=== PATIENT | female | born 1955 | race Hispanic/Latino ===

== ENCOUNTER 2020-08-18 23:22 | Emergency (ER) | payer SELFPAY ==
[2020-08-19] MEDS ORDERED: ALBUTEROL INHALER 60 PUFF/8 GM IH ONE (00:38)
[2020-08-19 01:25] LABS: Protime INR 0.98
[2020-08-19 01:27] LABS: Absolute Lymphocytes (CBC) 0.4 K/uL (0.7-4.9); Basophils % 0.3 % (0-1.3); Hematocrit 38.2 % (36.0-45.0); Lymphocytes % 7.2 % (15.3-44.8); MPV 7.7 fL (7.6-11.3); RBC Red Blood Cell Count 4.34 M/uL (3.86-4.86)
[2020-08-19 01:40] LABS: ALT/SGPT 23 U/L (12-78); AST/SGOT 18 U/L (15-37); Albumin 3.5 g/dL (3.4-5.0); Alkaline Phosphatase 89 U/L (45-117); BUN Blood Urea Nitrogen 13 mg/dL (7-18); Bicarbonate 25 mmol/L (21-32); Bilirubin Direct < 0.1 mg/dL (0-0.2); Bilirubin Total 0.3 mg/dL (0.2-1.0); Glucose Level 160 mg/dL (74-106); Magnesium 2.2 mg/dL (1.8-2.4); NT PRO-BNP 44 pg/mL (<125); Potassium 4.2 mmol/L (3.5-5.1); Protein, Total 8.1 g/dL (6.4-8.2); Sodium Level 138 mmol/L (136-145); Troponin (Emerg Dept Use Only) < 0.02 ng/mL (0.0-0.045)
[2020-08-19 02:34] LABS: Blood Morphology Comment NOT SEEN (NOT SEEN); Platelet Estimate ADEQ
--- NOTE | 2020-08-19 04:13 | EDPHYS ---
Physician Documentation [facility] Name: Liza Merchant Age: 64 yrs Sex: Female : 1955 Arrival Date: 08/18/2020 Time: 23:27 Bed 6 Private MD: ED Physician Theron Abarca HPI: 08/19 00:50 This 64 yrs old Female presents to ER via Ambulatory with complaints of mh7 Breathing Difficulty, High Blood Pressure. 00:50 The patient has shortness of breath at rest. Onset: The symptoms/episode began/occurred mh7 6 day(s) ago. Duration: The symptoms are continuous, and are unchanged since they started. The patient's shortness of breath is aggravated by coughing, light activity, is alleviated by nothing. 00:51 Associated signs and symptoms: Pertinent negatives: chest pain, productive cough, mh7 diaphoresis, dizziness, fever, hemoptysis, loss of consciousness, nausea, numbness in extremities, visual changes, vomiting. 00:57 Severity of symptoms: At their worst the symptoms were moderate yesterday, in the [facility] emergency department the symptoms are unchanged. Historical: - Allergies: 08/18 23:47 No Known Allergies; dm5 - Immunization history:: Adult Immunizations up to date. - Social history:: Smoking status: Patient denies any tobacco usage or history of. ROS: 08/19 00:57 Constitutional: Negative for fever, chills, and weight loss, Eyes: Negative for injury, mh7 pain, redness, and discharge, ENT: Negative for injury, pain, and discharge, Neck: Negative for injury, pain, and swelling, Cardiovascular: Negative for chest pain, palpitations, and edema, Abdomen/GI: Negative for abdominal pain, nausea, vomiting, diarrhea, and constipation, Back: Negative for injury and pain, : Negative for injury, bleeding, discharge, and swelling, MS/Extremity: Negative for injury and deformity, Skin: Negative for injury, rash, and discoloration, Neuro: Negative for headache, weakness, numbness, tingling, and seizure, Psych: Negative for depression, anxiety, suicide ideation, homicidal ideation, and hallucinations, Allergy/Immunology: Negative for hives, rash, and allergies, Endocrine: Negative for neck swelling, polydipsia, polyuria, polyphagia, and marked weight changes, Hematologic/Lymphatic: Negative for swollen nodes, abnormal bleeding, and unusual bruising. Exam: 00:57 Constitutional: This is a well developed, well nourished patient who is awake, alert, mh7 and in no acute distress. Head/Face: Normocephalic, atraumatic. Eyes: Pupils equal round and reactive to light, extra-ocular motions intact. Lids and lashes normal. Conjunctiva and sclera are non-icteric and not injected. Cornea within normal limits. Periorbital areas with no swelling, redness, or edema. Neck: Trachea midline, no thyromegaly or masses palpated, and no cervical lymphadenopathy. Supple, full range of motion without nuchal rigidity, or vertebral point tenderness. No Meningismus. Chest/axilla: Normal chest wall appearance and motion. Nontender with no deformity. No lesions are appreciated. Cardiovascular: Regular rate and rhythm with a normal S1 and S2. No gallops, murmurs, or rubs. Normal PMI, no JVD. No pulse deficits. 00:57 Abdomen/GI: Soft, non-tender, with normal bowel sounds. No distension or tympany. No guarding or rebound. No evidence of tenderness throughout. Back: No spinal tenderness. No costovertebral tenderness. Full range of motion. Skin: Warm, dry with normal turgor. Normal color with no rashes, no lesions, and no evidence of cellulitis. MS/ Extremity: Pulses equal, no cyanosis. Neurovascular intact. Full, normal range of motion. Neuro: Awake and alert, GCS 15, oriented to person, place, time, and situation. Cranial nerves II-XII grossly intact. Motor strength 5/5 in all extremities. Sensory grossly intact. Cerebellar exam normal. Normal gait. Psych: Awake, alert, with orientation to person, place and time. Behavior, mood, and affect are within normal limits. 00:57 Respiratory: the patient does not display signs of respiratory distress, Respirations: normal, Breath sounds: rhonchi, that are mild, are scattered, Respiratory rate: 20 Vital Signs: 08/18 23:45 BP 158 / 73; Pulse 78; Resp 20; Temp 97.8; Pulse Ox 97% on R/A; Weight 71.67 kg (R); dm5 Height 5 ft. 3 in. (160.02 cm); Pain 0/10; 11/23 00:15 BP 173 / 75; Pulse 80; Resp 18; Pulse Ox 97% on R/A; lp1 01:15 BP 143 / 63; Pulse 76; Resp 21; Pulse Ox 95% on R/A; lp1 02:00 BP 132 / 62; Pulse 69; Resp 21; Pulse Ox 95% on R/A; lp1 03:09 BP 148 / 70; Pulse 64; Resp 22; Pulse Ox 96% on R/A; lp1 04:00 BP 148 / 69; Pulse 63; Resp 23; Pulse Ox 95% on R/A; lp1 08/18 23:45 Body Mass Index 27.99 (71.67 kg, 160.02 cm) dm5 MDM: 04:10 Differential diagnosis: Anemia Anxiety Reaction asthma, Bronchitis CHF exacerbation, mh7 Chronic Obstructive Pulmonary Disease Myocardial Infarction pneumonia, Pneumothorax Psychogenic pulmonary edema, Pulmonary Embolism reactive airway disease. Data reviewed: vital signs, nurses notes, lab test result(s), cardiac enzymes, CBC, electrolytes, urinalysis, EKG, radiologic studies, CT scan, plain films. Data interpreted: Pulse oximetry: on room air is 96 %. Interpretation: normal. Counseling: I had a detailed discussion with the patient and/or guardian regarding: the historical points, exam findings, and any diagnostic results supporting the discharge/admit diagnosis, the presence of at least one elevated blood pressure reading (>120/80) during this emergency department visit, lab results, radiology results, the need for outpatient follow up, to return to the emergency department if symptoms worsen or persist or if there are any questions or concerns that arise at home. Response to treatment: the patient's symptoms have markedly improved after treatment. 04:12 Patient medically screened. [facility] 08/19 00:21 Order name: Basic Metabolic Panel; Complete Time: 02:08 [facility] 08/19 00:21 Order name: CBC with Diff; Complete Time: 03:49 [facility] 08/19 00:21 Order name: LFT's; Complete Time: 02:08 [facility] 08/19 00:21 Order name: Magnesium; Complete Time: 02:08 [facility] 08/19 00:21 Order name: NT PRO-BNP; Complete Time: 02:08 [facility] 08/19 00:21 Order name: PT-INR; Complete Time: 01:38 [facility] 08/19 00:21 Order name: Troponin (emerg Dept Use Only); Complete Time: 02:08 [facility] 08/19 00:21 Order name: XRAY Chest (1 view) [facility] 08/19 00:21 Order name: EKG; Complete Time: 00:22 [facility] 08/19 00:21 Order name: Cardiac monitoring; Complete Time: 00:58 [facility] 08/19 00:21 Order name: EKG - Nurse/Tech; Complete Time: 00:58 [facility] 08/19 01:37 Order name: Manual Differential; Complete Time: 03:49 EDMS 08/19 02:16 Order name: CT Chest For PE Angio [facility] 08/19 00:21 Order name: IV Saline Lock; Complete Time: 00:58 [facility] 08/19 00:21 Order name: Labs collected and sent; Complete Time: 00:58 [facility] 08/19 00:21 Order name: O2 Per Protocol; Complete Time: 00:58 [facility] 08/19 00:21 Order name: O2 Sat Monitoring; Complete Time: 00:58 [facility] Administered Medications: 00:58 Drug: Albuterol HFA Inhaler 2 puffs Route: Inhalation; lp1 Disposition: 08/19/20 04:12 Discharged to Home. Impression: COVID Pneumonia. - Condition is Stable. - Discharge Instructions: COVID-19. - Prescriptions for Tessalon Perles 100 mg Oral Capsule - take 1 capsule by ORAL route every 8 hours As needed; 15 capsule. Zithromax Z- Mk 250 mg Oral Tablet - take 1 tablet by ORAL route as directed for 5 days Day 1 - take two (2) tablets one time. Day 2, 3, 4 , 5 take one (1) tablet once daily.; 6 tablet. Albuterol Sulfate 90 mcg/actuation - inhale 1-2 puff by INHALATION route every 4-6 hours; 1 Inhaler. - Medication Reconciliation Form, Thank You Letter, Antibiotic Education, Prescription Opioid Use form. - Follow up: Private Physician; When: 1 - 2 days; Reason: Worsening of condition, Recheck today's complaints, Continuance of care, Re-evaluation by your physician. Follow up: Helio Maravilla MD; When: 1 - 2 days; Reason: Worsening of condition, Recheck today's complaints. - Problem is an ongoing problem. - Symptoms have improved. Signatures: Dispatcher [employer] EDMS Vaishnavi Leonard, RN RN dm5 Vicky Anand RN RN lp1 Theron Abarca MD MD mh7 Corrections: (The following items were deleted from the chart) 04:26 04:12 08/19/2020 04:12 Discharged to Home. Impression: COVID Pneumonia. Condition is lp1 Stable. Forms are Medication Reconciliation Form, Thank You Letter, Antibiotic Education, Prescription Opioid Use. Follow up: Private Physician; When: 1 - 2 days; Reason: Worsening of condition, Recheck today's complaints, Continuance of care, Re-evaluation by your physician. Follow up: Helio Maravilla; When: 1 - 2 days; Reason: Worsening of condition, Recheck today's complaints. Problem is an ongoing problem. Symptoms have improved. mh7
--- NOTE | 2020-08-19 04:13 | ER ---
Nurse's Notes [facility] Name: Liza Merchant Age: 64 yrs Sex: Female : 1955 Arrival Date: 08/18/2020 Time: 23:27 Bed 6 Private MD: Diagnosis: COVID Pneumonia Presentation: 08/18 23:45 Chief complaint: Patient states: I am worried about bronchitis, when I breathe deep i dm5 cough. tested positive for COVID on 08/12. Coronavirus screen: Client reports previous positive COVID test result. Date of collection: August 12, 2020 copy of results with her. Ebola Screen: Patient negative for fever greater than or equal to 101.5 degrees Fahrenheit, and additional compatible Ebola Virus Disease symptoms Patient denies exposure to infectious person. Patient denies travel to an Ebola-affected area in the 21 days before illness onset. No symptoms or risks identified at this time. Initial Sepsis Screen: Does the patient meet any 2 criteria? No. Patient's initial sepsis screen is negative. Does the patient have a suspected source of infection? Yes: Productive cough/pneumonia. Risk Assessment: Do you want to hurt yourself or someone else? Patient reports no desire to harm self or others. Onset of symptoms was August 18, 2020. 23:45 Method Of Arrival: Ambulatory dm5 23:45 Acuity: HIRO 3 dm5 Historical: - Allergies: 23:47 No Known Allergies; dm5 - Immunization history:: Adult Immunizations up to date. - Social history:: Smoking status: Patient denies any tobacco usage or history of. Screenin/23 00:59 Abuse screen: Denies threats or abuse. Denies injuries from another. Nutritional lp1 screening: No deficits noted. Tuberculosis screening: No symptoms or risk factors identified. Fall Risk None identified. Assessment: 00:30 General: Appears in no apparent distress. Behavior is calm, cooperative, appropriate lp1 for age. Pain: Complains of pain in chest Aggravated by coughing. Neuro: Level of Consciousness is awake, alert, obeys commands, Oriented to person, place, time, situation. Cardiovascular: Patient's skin is warm and dry. Rhythm is sinus rhythm. Respiratory: Reports shortness of breath on exertion pain with cough Airway is patent Trachea midline Respiratory effort is even, Respiratory pattern is regular, symmetrical, Breath sounds are clear bilaterally. Onset: The symptoms/episode began/occurred gradually, the patient has mild shortness of breath. GI: Abdomen is non-distended. : No signs and/or symptoms were reported regarding the genitourinary system. EENT: No signs and/or symptoms were reported regarding the EENT system. Derm: Skin is pink, warm \T\ dry. Musculoskeletal: No deficits noted. 02:00 Reassessment: Patient appears in no apparent distress at this time. Patient resting, lp1 eyes closed, respirations even. 03:09 Reassessment: Patient is alert, oriented x 3, equal unlabored respirations, skin lp1 warm/dry/pink. Patient returned from CT; Denies any needs at this time. 04:12 Reassessment: Patient assessed while ambulating independently; O2 on RA at 94% HR 90; lp1 Patient denies shortness of breath after walking around empty hallway. 04:15 Reassessment: Dr. Abarca at bedside to discuss discharge with patient, demonstrates lp1 comfort with discharge plans and continue quarantine. Vital Signs: 08/18 23:45 BP 158 / 73; Pulse 78; Resp 20; Temp 97.8; Pulse Ox 97% on R/A; Weight 71.67 kg (R); dm5 Height 5 ft. 3 in. (160.02 cm); Pain 0/10; 08/19 00:15 BP 173 / 75; Pulse 80; Resp 18; Pulse Ox 97% on R/A; lp1 01:15 BP 143 / 63; Pulse 76; Resp 21; Pulse Ox 95% on R/A; lp1 02:00 BP 132 / 62; Pulse 69; Resp 21; Pulse Ox 95% on R/A; lp1 03:09 BP 148 / 70; Pulse 64; Resp 22; Pulse Ox 96% on R/A; lp1 04:00 BP 148 / 69; Pulse 63; Resp 23; Pulse Ox 95% on R/A; lp1 08/18 23:45 Body Mass Index 27.99 (71.67 kg, 160.02 cm) dm5 ED Course: 08/18 23:27 Patient arrived in ED. cf2 23:47 Triage completed. dm5 23:57 Theron Abarca MD is Attending Physician. 7 08/19 00:08 Vicky Anand, RN is Primary Nurse. lp1 00:45 Inserted saline lock: 20 gauge in right forearm, using aseptic technique. Blood lp1 collected. 00:45 Patient has correct armband on for positive identification. Placed in gown. Bed in low lp1 position. Call light in reach. c d still operator on. Pulse ox on. NIBP on. 00:59 Arm band placed on. lp1 01:05 XRAY Chest (1 view) In Process Unspecified. EDMS 03:10 CT Chest For PE Angio In Process Unspecified. EDMS 04:11 Helio Maravilla MD is Referral Physician. [facility] 04:16 No provider procedures requiring assistance completed. IV discontinued, No lp1 redness/swelling at site. Pressure dressing applied. Administered Medications: 00:58 Drug: Albuterol HFA Inhaler 2 puffs Route: Inhalation; lp1 Outcome: 04:12 Discharge ordered by MD. 7 04:16 Discharged to home ambulatory, with family. lp1 04:16 Condition: good 04:16 Discharge instructions given to patient, family, Instructed on discharge instructions, follow up and referral plans. medication usage, Demonstrated understanding of instructions, follow-up care, medications, Prescriptions given X 3. 04:26 Patient left the ED. lp1 Signatures: Dispatcher [employer] EDME Vaishnavi Leonard RN RN dm5 Vicky Anand RN RN lp1 Allie Montiel cf2 Theron Abarca MD MD 7 Corrections: (The following items were deleted from the chart) 02:13 02:10 BP 143 / 63; Pulse 76bpm; Resp 21bpm; Pulse Ox 95% RA; lp1 lp1 02:17 00:30 Respiratory: Reports pain with cough Airway is patent Trachea midline Respiratory lp1 effort is even, Respiratory pattern is regular, symmetrical, Breath sounds are clear bilaterally. lp1 02:17 00:30 Respiratory: Reports shortness of breath on exertion pain with cough Airway is lp1 patent Trachea midline Respiratory effort is even, Respiratory pattern is regular, symmetrical, Breath sounds are clear bilaterally. the patient has mild shortness of breath lp1
--- NOTE | 2020-08-19 08:57 | RAD REPORT ---
EXAM DESCRIPTION: RAD - Chest Single View - 08/19/2020 1:05 am CLINICAL HISTORY: Cough;SOB Chest pain. COMPARISON: CHEST PA AND LAT 2 VIEW dated 07/07/2008 FINDINGS: Portable technique limits examination quality. The lungs are grossly clear. The heart is normal in size. No displaced fractures. IMPRESSION: No acute intrathoracic process suspected.
[2020-08-19 10:21] VITALS: TEMP 97.8
[2020-08-19 10:35] VITALS: BP 148/69; O2SAT 95
--- NOTE | 2020-08-19 12:01 | RAD REPORT ---
EXAM DESCRIPTION: CT Angiography Chest With Intravenous Contrast CLINICAL HISTORY: The patient is 64 years old and is Female; SOB TECHNIQUE: Axial computed tomographic angiography images of the chest with intravenous contrast. S agittal and coronal reformatted images were created and reviewed. This CT exam was performed using one or more of the following dose reduction techniques: automated exposure control, adjustment of t he mA and/or kV according to patient size, and/or use of iterative reconstruction technique. MIP reconstructed images were created and reviewed. COMPARISON: No relevant prior studies available. FINDINGS: ARTIFACTS: The exam is suboptimal secondary to motion artifact. PULMONARY ARTERIES: There are no obvious filling defects identified within the pulmonary arterie s to suggest pulmonary embolism. AORTA: No acute findings. No thoracic aortic aneurysm. LUNGS: Scattered nonspecific groundglass opacity throughout the lungs are present. Mild interlob ular thickening is noted. PLEURAL SPACE: Unremarkable. No significant effusion. No pneumothorax. HEART: Unremarkable. No cardiomegaly. No significant pericardial effusion. No evidence of RV dysfunction. MEDIASTINUM: The tracheobronchial tree is widely patent. BONES/JOINTS: Mild multilevel degenerative change of the spine with anterior osteophyte formatio n and intervertebral disc space narrowing is present. No acute fracture. No dislocation. SOFT TISSUES: Unremarkable. LYMPH NODES: Unremarkable. No enlarged lymph nodes. IMPRESSION: 1. No evidence of pulmonary embolism. 2. Imaging features can be seen with (COVID-19 or viral) pneumonia , though are nonspecific and can occur with a variety of infectious and noninfectious processes. [id number] Electronically signed by: Roselia Marx MD 08/19/2020 3:20 AM KILN BURNER Due to temporary technical issues with the PACS/Fluency reporting system, reports are being signed by the in house radiologist without review as a courtesy to ensure prompt reporting. The interpreting r adiologist is fully responsible for the content of the report.
== END 2020-08-19 04:26 | disposition home or self-care (01) ==
LOC: ER 23:22
DX: U07.1 COVID-19 (principal); J12.89 Other viral pneumonia
CPT/HCPCS: 36415; 71045; 71275; 80048; 80076; 83735; 83880; 84484; 85025; 85610; 93005; 99285; Q9967

== ENCOUNTER 2022-06-06 09:31 | Emergency (ER) | payer SELFPAY ==
[2022-06-06] MEDS ORDERED: MORPHINE 2 MG/ML SYR ONE ×2 (09:58→11:23)
[2022-06-06] MEDS ORDERED: KETOROLAC 30 MG/ML INJ ONE (09:58)
[2022-06-06] MEDS ORDERED: NA CHLORIDE 0.9% 1,000 ML ONE (09:59)
[2022-06-06] MEDS ORDERED: ONDANSETRON 4 MG/2 ML VIAL ONE (09:59)
[2022-06-06 10:04] LABS: Urine Blood Negative (Negative); Urine Glucose Negative (Negative); Urine Protein Negative (Negative); Urine Specific Gravity >=1.030 (1.005-1.030); Urine pH 5.5 (5.0-7.0)
[2022-06-06 10:10] LABS: Absolute Lymphocytes (CBC) 2.1 K/uL (0.7-4.9); Hematocrit 38.2 % (36.0-45.0); Lymphocytes % 34.2 % (15.3-44.8); MCV 87.7 fL (80-100); MPV 7.1 fL (7.6-11.3); RBC Red Blood Cell Count 4.36 M/uL (3.86-4.86)
--- NOTE | 2022-06-06 10:25 | RAD REPORT ---
EXAM DESCRIPTION: CTAbdomen Pelvis Wo Contrast - 06/06/2022 10:03 am CLINICAL HISTORY: severe abd pain 30 mins prior to arrival hx of HTN COMPARISON: No comparisons TECHNIQUE: CT of the abdomen and pelvis was performed. All CT scans are performed using dose optimization technique as appropriate and may include automated exposure control or mA/KV adjustment according to patient size. FINDINGS: Lower chest: No acute abnormality. Liver: No acute abnormality or suspicious lesions. Biliary: No biliary ductal dilatation. Stomach: No significant focal abnormality. Duodenum: No significant focal abnormality. Pancreas: No significant abnormality. Spleen: No significant abnormality. Adrenal: No suspicious lesions. Kidney/ureter: Mild right-sided hydronephrosis secondary to a 3 mm stone at the right UVJ. Retroperitoneum: No retroperitoneal adenopathy. Vascular: No aneurysm. Bowel: No significant focal abnormality. No appendicitis . Peritoneum: No ascites or free air. Bladder: Grossly unremarkable. Reproductive: No adnexal masses. Bones: No acute fracture. Other: n/a IMPRESSION: Mild right-sided hydroureteronephrosis secondary to a 3 mm stone at the right UVJ.
[2022-06-06 10:38] LABS: Albumin 3.7 g/dL (3.4-5.0); Bilirubin Total 0.5 mg/dL (0.2-1.0); Potassium 3.5 mmol/L (3.5-5.1); Protein, Total 7.6 g/dL (6.4-8.2); Troponin High Sensitivity 3.5 pg/mL (<58.9)
--- NOTE | 2022-06-06 10:50 | EDPHYS ---
Physician Documentation [facility] Name: Liza Merchant Age: 66 yrs Sex: Female : 1955 Arrival Date: 06/06/2022 Time: 09:32 Bed 17 Private MD: QUAN Physician Lennox Greer HPI: 06/06 09:45 This 66 yrs old Female presents to ER via Wheelchair with complaints of jl9 Abdominal Pain. Patient reports right sided abdominal pain that radiates to her right flank, sudden onset. . 09:45 The patient presents with abdominal pain right lower quadrant. Onset: The jl9 symptoms/episode began/occurred just prior to arrival. The symptoms radiate to the right flank. Associated signs and symptoms: Pertinent positives: nausea. The symptoms are described as sharp. Modifying factors: The symptoms are alleviated by nothing, the symptoms are aggravated by nothing. Severity of pain: in the emergency department the pain is a 5 / 10. The patient has not experienced similar symptoms in the past. Historical: - Allergies: 09:38 No Known Allergies; kr3 - PMHx: 09:38 Hypertensive disorder; kr3 - PSHx: 09:38 None; kr3 - Immunization history:: Client reports receiving the 2nd dose of the Covid vaccine. - Social history:: Smoking status: Patient denies any tobacco usage or history of. ROS: 09:46 Constitutional: Negative for fever, chills, and weight loss, Eyes: Negative for injury, jl9 pain, redness, and discharge, ENT: Negative for injury, pain, and discharge, Neck: Negative for injury, pain, and swelling, Cardiovascular: Negative for chest pain, palpitations, and edema, Respiratory: Negative for shortness of breath, cough, wheezing, and pleuritic chest pain. 09:46 : Negative for injury, bleeding, discharge, and swelling, MS/Extremity: Negative for injury and deformity, Skin: Negative for injury, rash, and discoloration, Neuro: Negative for headache, weakness, numbness, tingling, and seizure, Psych: Negative for depression, anxiety, suicide ideation, homicidal ideation, and hallucinations, Allergy/Immunology: Negative for hives, rash, and allergies, Endocrine: Negative for neck swelling, polydipsia, polyuria, polyphagia, and marked weight changes, Hematologic/Lymphatic: Negative for swollen nodes, abnormal bleeding, and unusual bruising. 09:46 Abdomen/GI: Positive for abdominal pain, nausea. 09:46 Back: Positive for flank pain, on the right, radiated pain. Exam: 09:46 Constitutional: This is a well developed, well nourished patient who is awake, alert, jl9 and in no acute distress. Head/Face: Normocephalic, atraumatic. Eyes: Pupils equal round and reactive to light, extra-ocular motions intact. Lids and lashes normal. Conjunctiva and sclera are non-icteric and not injected. Cornea within normal limits. Periorbital areas with no swelling, redness, or edema. ENT: Mucous membranes moist. Neck: Trachea midline, no thyromegaly or masses palpated, and no cervical lymphadenopathy. Supple, full range of motion without nuchal rigidity, or vertebral point tenderness. No Meningismus. Chest/axilla: Normal chest wall appearance and motion. Nontender with no deformity. No lesions are appreciated. Cardiovascular: Regular rate and rhythm with a normal S1 and S2. No gallops, murmurs, or rubs. Normal PMI, no JVD. No pulse deficits. Respiratory: Lungs have equal breath sounds bilaterally, clear to auscultation and percussion. No rales, rhonchi or wheezes noted. No increased work of breathing, no retractions or nasal flaring. 09:46 Back: No spinal tenderness. No costovertebral tenderness. Full range of motion. Skin: Warm, dry with normal turgor. Normal color with no rashes, no lesions, and no evidence of cellulitis. MS/ Extremity: Pulses equal, no cyanosis. Neurovascular intact. Full, normal range of motion. Neuro: Awake and alert, GCS 15, oriented to person, place, time, and situation. Cranial nerves II-XII grossly intact. Motor strength 5/5 in all extremities. Sensory grossly intact. Cerebellar exam normal. Normal gait. Psych: Awake, alert, with orientation to person, place and time. Behavior, mood, and affect are within normal limits. 09:46 Abdomen/GI: Inspection: abdomen appears normal, Bowel sounds: normal, Palpation: abdomen is soft and non-tender, Rectal exam: Indicators: Vital Signs: 09:38 BP 137 / 63; Pulse 64; Resp 18; Temp 97.1; Pulse Ox 100% ; Weight 65.32 kg; Height 5 kr3 ft. 2 in. (157.48 cm); Pain 9/10; 11:34 BP 163 / 79; Pulse 77; Resp 18; Pulse Ox 100% ; Pain 3/10; jh6 09:38 Body Mass Index 26.34 (65.32 kg, 157.48 cm) kr3 MDM: 09:41 Patient medically screened. 9 09:47 Data reviewed: vital signs, nurses notes. [facility] 10:49 Response to treatment: the patient's symptoms have resolved after treatment, the 9 patient's pain is gone. 10:49 Counseling: I had a detailed discussion with the patient and/or guardian regarding: the [facility] historical points, exam findings, and any diagnostic results supporting the discharge/admit diagnosis, lab results, radiology results, the need for outpatient follow up, to return to the emergency department if symptoms worsen or persist or if there are any questions or concerns that arise at home. 06/06 09:44 Order name: CBC with Diff; Complete Time: 10:26 [facility] 06/06 09:44 Order name: CMP; Complete Time: 10:40 06/06 09:44 Order name: Lipase; Complete Time: 10:40 06/06 09:44 Order name: CT Abd/Pelvis - Without Contrast; Complete Time: 10:26 06/06 09:44 Order name: Troponin High Sensitivity; Complete Time: 10:40 06/06 10:04 Order name: Urine Dipstick-Ancillary; Complete Time: 10:26 [facility]PA 06/06 09:44 Order name: IV Saline Lock; Complete Time: 09:59 06/06 09:44 Order name: Labs collected and sent; Complete Time: 10:00 [facility] 06/06 09:44 Order name: EKG; Complete Time: 09:45 [facility] 06/06 09:44 Order name: Urine Dipstick-Ancillary (obtain specimen); Complete Time: 10:03 [facility] Administered Medications: 09:59 Drug: NS 0.9% 1000 ml Route: IV; Rate: 1 bolus; Site: left antecubital; 6 09:59 Drug: Zofran (Ondansetron) 4 mg Route: IVP; Site: left antecubital; 6 09:59 Drug: Ketorolac 30 mg Route: IVP; Site: left antecubital; [facility] 09:59 Drug: morphine 2 mg Route: IVP; Infused Over: 4 mins; Site: left antecubital; [facility] 11:21 Drug: morphine 2 mg Route: IVP; Infused Over: 4 mins; Site: left antecubital; [facility] Disposition Summary: 06/06/22 10:49 Discharge Ordered Location: Home jl9 Condition: Stable jl9 Diagnosis - Kidney Stone/ Calculus in urethra jl9 Followup: jl9 - With: Private Physician - When: 1 - 2 days - Reason: Recheck today's complaints, Continuance of care, Re-evaluation by your physician Discharge Instructions: - Discharge Summary Sheet jl9 - Kidney Stones, [id number] [facility] Forms: - Medication Reconciliation Form jl9 - Thank You Letter jl9 - Antibiotic Education jl9 - Prescription Opioid Use jl9 Prescriptions: - ketorolac 10 mg Oral tablet - take 1 tablet by ORAL route every 6 hours As needed not to exceed 40 mg in 9 24hrs; 20 tablet; Refills: 0, Product Selection Permitted - tamsulosin 0.4 mg Oral capsule - take 1 capsule by ORAL route once daily 1/2 hour following the same meal each jl9 day; 14 capsule; Refills: 0, Product Selection Permitted - ondansetron 8 mg Oral tablet,disintegrating - take 1 tablet by ORAL route every 8 hours As needed; 20 tablet; Refills: 0, 9 Product Selection Permitted - Tylenol-Codeine #3 300 mg-30 mg Oral - take 1 tablet by ORAL route every 6 hours As needed; 12 tablet; Refills: 0, 9 Product Selection Permitted Signatures: Dispatcher [employer] Velma Olson RN RN jh6 Angelo Medina 9 Kailey Rodas RN RN kr3
--- NOTE | 2022-06-06 10:50 | ER ---
Nurse's Notes [facility] Name: Liza Merchant Age: 66 yrs Sex: Female : 1955 Arrival Date: 06/06/2022 Time: 09:32 Bed 17 Private MD: Diagnosis: Kidney Stone/ Calculus in urethra Presentation: 06/06 09:38 Onset of symptoms was June 06, 2022. 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 No fever or N/V/D. kr3 Coronavirus screen: Vaccine status: Patient reports receiving the 2nd dose of the covid vaccine. Client denies travel out of the [place] in the last 14 days. At this time, the client does not indicate any symptoms associated with coronavirus-19. Ebola Screen: Patient denies travel to an Ebola-affected area in the 21 days before illness onset. Initial Sepsis Screen: Does the patient meet any 2 criteria? No. Patient's initial sepsis screen is negative. Does the patient have a suspected source of infection? Yes: Acute abdominal pain. Risk Assessment: Do you want to hurt yourself or someone else? Patient reports no desire to harm self or others. 09:38 Method Of Arrival: Wheelchair kr3 Triage Assessment: 10:00 General: Appears uncomfortable, Behavior is anxious. jh6 Historical: - Allergies: 09:38 No Known Allergies; kr3 - PMHx: 09:38 Hypertensive disorder; kr3 - PSHx: 09:38 None; kr3 - Immunization history:: Client reports receiving the 2nd dose of the Covid vaccine. - Social history:: Smoking status: Patient denies any tobacco usage or history of. Screenin:01 Abuse screen: Denies threats or abuse. Denies injuries from another. Nutritional jh6 screening: No deficits noted. Tuberculosis screening: No symptoms or risk factors identified. Fall Risk IV access (20 points). Assessment: 10:01 Pain: Complains of pain in right mid back Pain radiates to right upper quadrant and jh6 right lower quadrant Pain currently is 10 out of 10 on a pain scale. Quality of pain is described as shooting, gnawing. GI: Bowel sounds present X 4 quads. Abd is soft X 4 quads Abdomen is tender to palpation in right upper quadrant and right lower quadrant. 10:09 Reassessment: Patient states feeling better. Patient states symptoms have improved. jh6 11:34 Reassessment: Patient is alert, oriented x 3, equal unlabored respirations, skin jh6 warm/dry/pink. pt states that pain is better after second dose of pain meds. reports that pain went from a 7 to a 3-4. Vital Signs: 09:38 BP 137 / 63; Pulse 64; Resp 18; Temp 97.1; Pulse Ox 100% ; Weight 65.32 kg; Height 5 kr3 ft. 2 in. (157.48 cm); Pain 9/10; 11:34 BP 163 / 79; Pulse 77; Resp 18; Pulse Ox 100% ; Pain 3/10; jh6 09:38 Body Mass Index 26.34 (65.32 kg, 157.48 cm) kr3 ED Course: 09:32 Patient arrived in ED. rg4 09:37 Arm band placed on Patient placed in an exam room, on a stretcher. kr3 09:38 Triage completed. kr3 09:41 Angelo Medina is PHCP. jl9 09:41 Lennox Greer MD is Attending Physician. jl9 09:46 Velma Blackwell, TATE is Primary Nurse. jh6 10:00 Initial lab(s) drawn, by label pinker, Urine collected: clean catch specimen, clear. jh6 Inserted saline lock: 20 gauge in left antecubital area, using aseptic technique. Blood collected. 10:03 Troponin High Sensitivity Sent. kc6 10:03 CBC with Diff Sent. kc6 10:03 CMP Sent. kc6 10:03 Lipase Sent. kc6 10:05 CT Abd/Pelvis - Without Contrast In Process Unspecified. EDMS 10:09 Patient moved back from CT. jh6 10:09 Bed in low position. Call light in reach. Side rails up X 1. Adult w/ patient. jh6 10:09 No provider procedures requiring assistance completed. jh6 11:33 IV discontinued, intact, bleeding controlled, No redness/swelling at site. Pressure jh6 dressing applied. Administered Medications: 09:59 Drug: NS 0.9% 1000 ml Route: IV; Rate: 1 bolus; Site: left antecubital; 6 09:59 Drug: Zofran (Ondansetron) 4 mg Route: IVP; Site: left antecubital; [facility] 09:59 Drug: Ketorolac 30 mg Route: IVP; Site: left antecubital; 6 09:59 Drug: morphine 2 mg Route: IVP; Infused Over: 4 mins; Site: left antecubital; 6 11:21 Drug: morphine 2 mg Route: IVP; Infused Over: 4 mins; Site: left antecubital; 6 Medication: 11:34 VIS not applicable for this client. [facility] Outcome: 10:49 Discharge ordered by . alfonzo 11:33 Discharged to home ambulatory. [facility] 11:33 Condition: improved 11:33 Discharge instructions given to patient, family, Instructed on discharge instructions, follow up and referral plans. Demonstrated understanding of instructions, medications, Prescriptions given X 4. 11:35 Patient left the ED. [facility] Signatures: Dispatcher [employer] Lorraine Lassiter rg4 Velma Blackwell RN RN jh6 Angelo Medina9 Kailey Rodas RN RN kr3 Carol Rodriguez kc6
[2022-06-06 12:23] VITALS: TEMP 97.1; O2SAT 100
[2022-06-06 12:31] VITALS: BP 163/79
== END 2022-06-06 11:35 | disposition home or self-care (01) ==
LOC: ER 09:31
DX: N20.0 Calculus of kidney (principal); N21.1 Calculus in urethra; I10 Essential (primary) hypertension
CPT/HCPCS: 36415; 74176; 80053; 81003; 83690; 84484; 85025; 96374; 96375; 99284; J2270; J2405; J7030